=== PATIENT | male | born 1945 | race Two or more races ===

== ENCOUNTER 2021-02-12 14:50 | Emergency (ER) | payer OTHER ==
[~2021-02-12] VITALS: Ht 172.7 cm; Wt 65.8 kg
[2021-02-12] MEDS ORDERED: TOPROL XL50 M1 PO (15:00)
[2021-02-12] MEDS ORDERED: ENALAPRIL MALEA10 MG PO (15:01)
[2021-02-12] MEDS ORDERED: BAYER THERAPY325 MG PO (15:01)
== END 2021-02-12 22:45 | disposition home or self-care (01) ==
LOC: ER 14:50
DX: K40.30 Unilateral inguinal hernia, with obstruction, without gangrene, not specified as recurrent (principal)